=== PATIENT | female | born 1985 | race Hispanic/Latino ===

== ENCOUNTER → 2025-09-07 | Outpatient (CLI) | payer OTHER ==
[~2025-09-07] MED LIST: GADOTERATE MEGLUMINE 10 MMOL/20 ML VIAL IV ONE
--- NOTE | 2025-09-08 14:18 | HMCIMG ---
EXAMINATION: MRI OF THE ABDOMEN WITHOUT AND WITH CONTRAST. CLINICAL HISTORY: Primary biliary cirrhosis. COMPARISON: None. TECHNIQUE: Multiplanar, multisequence MR images of the abdomen are submitted. Post contrast images were obtained after administration of IV contrast. FINDINGS: The liver is enlarged in caliber, measuring 19 cm with fatty changes. Intrahepatic bile ducts are normal in caliber. The common bile duct is normal in caliber throughout its course without evidence of choledocholithiasis. The gallbladder is normal in caliber and signal intensity. No calculus. The common hepatic duct measures 0.6 cm. The common bile duct measuring 0.5 cm is normal in caliber throughout its course without stricturing, or MR evidence for choledocholithiasis. The cystic duct is normal with upper CBD insertion. The pancreas head, body, and tail appears normal in caliber and signal intensity. No peripancreatic fat plane stranding. The main pancreatic duct is normal in caliber. The spleen is normal in caliber and signal intensity. There is no focal abnormality appreciated within the spleen. There is no focal abnormality appreciated within the adrenal glands. The kidneys are normal in caliber and signal intensity with normal enhancement. The included gastrointestinal tract is normal in caliber and signal intensity. There is no ascites. There is no lymphadenopathy. IMPRESSION: Study limited without contrast. No biliary duct dilatation. No gallstones or ductal stones. Hepatomegaly with fatty changes. /Kohler
== END | disposition home or self-care (01) ==
LOC: RAH 08:58
PROVIDERS: ATTEND Student in an Organized Health Care Education/Training Program
DX: K76.0 Fatty (change of) liver, not elsewhere classified (principal); K74.3 Primary biliary cirrhosis
CPT/HCPCS: 74183; A9575